=== PATIENT | male | born 2000 | race Caucasian/White ===

== ENCOUNTER 2022-04-16 07:54 | Day surgery (SDC) | payer OTHER ==
[2022-04-14 12:55] VITALS: BMI 28.8
[2022-04-16] MEDS ORDERED: LIDOCAINE HCL 2% (20ML MULTI-DOSE VIAL) ONE (07:56)
[2022-04-16] MEDS ORDERED: MIDAZOLAM HCL 2 MG/2 ML SINGLE DOSE VIAL ONE (08:50)
[2022-04-16] MEDS ORDERED: DEXAMETHASONE SOD PHOSPHATE 4 MG/1 ML VIAL ONE (09:06)
[2022-04-16] MEDS ORDERED: ONDANSETRON 4 MG/2 ML VIAL ONE (09:06)
[2022-04-16] MEDS ORDERED: KETOROLAC TROMETHAMINE 30 MG/1 ML VIAL ONE (09:06)
[2022-04-16] MEDS ORDERED: PROPOFOL 20 ML ONE (09:11)
[2022-04-16] MEDS ORDERED: BUPIVACAINE HCL/PF 0.25% (2.5MG/ML) 10 ML VIAL ONE (09:21)
[2022-04-16 09:45] VITALS: PULSE 70; RESP 16; TEMP 98.3
[2022-04-16 10:06] VITALS: BP 113/66
== END 2022-04-16 10:24 | disposition home or self-care (01) ==
LOC: FASU 07:54
PROVIDERS: ATTEND Orthopaedic Surgery Hand Surgery
PROC: 0JBJ0ZX Excision of Right Hand Subcutaneous Tissue and Fascia, Open Approach, Diagnostic (ICD-10-PCS; principal; 2022-04-16 09:13)
DX: D21.11 Benign neoplasm of connective and other soft tissue of right upper limb, including shoulder (principal)
CPT/HCPCS: 88305-TC

== ENCOUNTER 2022-06-05 03:25 | Emergency (ER) | payer OTHER ==
[2022-06-05 04:16] VITALS: BP 114/71; PULSE 76; RESP 18; TEMP 97.3; BMI 28.7
== END 2022-06-05 06:40 | disposition left against medical advice (07) ==
LOC: JER 03:25
DX: R11.0 Nausea (principal)
CPT/HCPCS: 99281-25

== ENCOUNTER 2022-06-06 00:21 | Inpatient (IN) | payer OTHER ==
[2022-06-06] MEDS ORDERED: ONDANSETRON 4 MG/2 ML VIAL IVPUSH ONE (02:43)
[2022-06-06] MEDS ORDERED: ACETAMINOPHEN 1000 MG/100 ML BAG IVPB ONE (02:44)
[2022-06-06] MEDS ORDERED: ACETAMINOPHEN INJECTION 100 ML IVPB ONE (02:55)
[2022-06-06] MEDS ORDERED: ONDANSETRON 4 MG/2 ML VIAL ONE (02:55)
[2022-06-06 03:26] LABS: BASO % 0.1 % (0-2.0); EOS % 1.9 % (0-4.5); HEMATOCRIT 42.5 % (35.4-49); HEMOGLOBIN 14.1 GM/dL (11.7-16.9); LYMPH % 29.4 % (8-40); MCH 28.6 pg (25.7-33.7); MCHC 33.1 g/dl (32.0-35.9); MEAN CELL VOLUME 86.5 fl (80-96); MEAN PLT VOLUME 10.1 fl (7.5-11.1); MONO % 9.5 % (3.8-10.2); NEUT % 59.1 % (42.8-82.8); PLATELET COUNT 187 10^3/uL (134-434); RBC 4.91 M/mm3 (4.00-5.60); RDW 13.5 % (11.9-15.9); WHITE BLOOD COUNT 4.7 K/mm3 (4.0-10.0)
[2022-06-06 03:39] LABS: CALCIUM 9.2 mg/dL (8.5-10.1)
[2022-06-06 03:41] LABS: ALBUMIN 4.1 g/dl (3.4-5.0); BLOOD UREA NITROGEN 13.5 mg/dL (7-18)
[2022-06-06 03:44] LABS: BILIRUBIN,TOTAL 2.6 mg/dL (0.2-1); CREATININE 0.6 mg/dL (0.55-1.3)
[2022-06-06 03:45] LABS: TOT PROT 7.5 g/dl (6.4-8.2)
[2022-06-06] MEDS ORDERED: SODIUM CHLORIDE 1,000 ML IV STA (08:52)
[2022-06-06 10:02] LABS: INR 1.23 (0.83-1.09); PROTHROMBIN TIME (PATIENT) 14.2 SEC (9.7-13.0)
[2022-06-06 10:05] LABS: ACTIVATED PTT 39.4 SECONDS (25.2-36.5)
[2022-06-06] MEDS ORDERED: LACTATED RINGERS SOLUTION 1,000 ML/1,000 ML INFUS.BAG IV SCH (11:30)
[2022-06-06] MEDS ORDERED: PHYTONADIONE 10 MG/1 ML AMP IVPB ONE (13:00)
[2022-06-06 13:01] LABS: BASO % 0.5 % (0-2.0); HEMATOCRIT 41.6 % (35.4-49); HEMOGLOBIN 13.7 GM/dL (11.7-16.9); LYMPH % 34.4 % (8-40); MCH 28.5 pg (25.7-33.7); MCHC 32.9 g/dl (32.0-35.9); MEAN CELL VOLUME 86.7 fl (80-96); MEAN PLT VOLUME 10.2 fl (7.5-11.1); NEUT % 55.1 % (42.8-82.8); PLATELET COUNT 172 10^3/uL (134-434); RDW 13.4 % (11.9-15.9); WHITE BLOOD COUNT 3.3 K/mm3 (4.0-10.0)
[2022-06-06 13:10] LABS: CALCIUM 8.6 mg/dL (8.5-10.1)
[2022-06-06 13:12] LABS: ALBUMIN 3.7 g/dl (3.4-5.0); BLOOD UREA NITROGEN 9.7 mg/dL (7-18)
[2022-06-06 13:14] LABS: CREATININE 0.6 mg/dL (0.55-1.3)
[2022-06-06 13:17] LABS: BILIRUBIN,TOTAL 1.7 mg/dL (0.2-1); TOT PROT 6.8 g/dl (6.4-8.2)
[2022-06-06] MEDS ORDERED: ONDANSETRON 4 MG/2 ML VIAL IVPUSH PRN (13:32)
[2022-06-06] MEDS ORDERED: PHYTONADIONE 10 MG/1 ML AMP ONE (13:33)
[2022-06-06] MEDS ORDERED: PIPERACILLIN/TAZOB 3.375 GM 3.375 GM/50 ML BAG IVPB ONE (13:33)
[2022-06-06] MEDS: PIPERACILLIN/TAZOB 3.375 GM 3.375 GM in DEXTROSE 5%-WATER - 50 ML IVPB SCH ×2 (14:14→18:24)
[2022-06-06] MEDS: LACTATED RINGERS SOLUTION 1,000 ML/1,000 ML INFUS.BAG IV SCH (16:22)
[2022-06-06 17:57] VITALS: BMI 28.8
[2022-06-07] MEDS: PIPERACILLIN/TAZOB 3.375 GM 3.375 GM in DEXTROSE 5%-WATER - 50 ML IVPB SCH ×2 (01:17→10:59)
[2022-06-07 09:32] LABS: BASO % 0.6 % (0-2.0); EOS % 2.2 % (0-4.5); HEMOGLOBIN 13.4 GM/dL (11.7-16.9); MCH 28.7 pg (25.7-33.7); MCHC 33.4 g/dl (32.0-35.9); MEAN PLT VOLUME 10.4 fl (7.5-11.1); MONO % 9.4 % (3.8-10.2); NEUT % 55.8 % (42.8-82.8); PLATELET COUNT 167 10^3/uL (134-434); RBC 4.65 M/mm3 (4.00-5.60); RDW 13.6 % (11.9-15.9)
[2022-06-07] MEDS: LACTATED RINGERS SOLUTION 1,000 ML/1,000 ML INFUS.BAG IV SCH ×2 (09:36→18:13)
[2022-06-07 10:10] LABS: CALCIUM 9.2 mg/dL (8.5-10.1)
[2022-06-07 10:11] LABS: ALBUMIN 3.6 g/dl (3.4-5.0); BLOOD UREA NITROGEN 8.5 mg/dL (7-18)
[2022-06-07 10:13] LABS: ALBUMIN 3.6 g/dl (3.4-5.0)
[2022-06-07 10:14] LABS: CREATININE 0.6 mg/dL (0.55-1.3)
[2022-06-07 10:15] LABS: BILIRUBIN,TOTAL 1.6 mg/dL (0.2-1); TOT PROT 6.8 g/dl (6.4-8.2)
[2022-06-07 10:17] LABS: BILIRUBIN,DIRECT 0.8 mg/dL (0.0-0.2); BILIRUBIN,TOTAL 1.6 mg/dL (0.2-1)
[2022-06-07 10:18] LABS: TOT PROT 6.8 g/dl (6.4-8.2)
[2022-06-08 09:09] LABS: ALBUMIN 3.7 g/dl (3.4-5.0)
[2022-06-08 09:12] LABS: BILIRUBIN,DIRECT 0.6 mg/dL (0.0-0.2)
[2022-06-08 09:13] LABS: TOT PROT 6.9 g/dl (6.4-8.2)
[2022-06-08 09:22] LABS: BILIRUBIN,TOTAL 1.1 mg/dL (0.2-1)
[2022-06-08] MEDS: LACTATED RINGERS SOLUTION 1,000 ML/1,000 ML INFUS.BAG IV SCH (13:47)
[2022-06-08] MEDS: CEFTRIAXONE 1 GM in DEXTROSE 5%-WATER - 50 ML IVPB SCH (17:42)
[2022-06-09] MEDS: LACTATED RINGERS SOLUTION 1,000 ML/1,000 ML INFUS.BAG IV SCH (02:30)
[2022-06-09] MEDS: CEFTRIAXONE 1 GM in DEXTROSE 5%-WATER - 50 ML IVPB SCH (09:26)
[2022-06-09] MEDS: PIPERACILLIN/TAZOB 3.375 GM 3.375 GM in DEXTROSE 5%-WATER - 50 ML IVPB SCH ×2 (10:00→10:01)
[2022-06-09 10:11] LABS: BILIRUBIN,TOTAL 0.9 mg/dL (0.2-1)
[2022-06-09 10:16] LABS: ALBUMIN 3.6 g/dl (3.4-5.0)
[2022-06-09 10:19] LABS: BILIRUBIN,DIRECT 0.5 mg/dL (0.0-0.2); TOT PROT 6.6 g/dl (6.4-8.2)
[2022-06-09] MEDS ORDERED: BUPIVACAINE HCL/PF 0.25% (2.5MG/ML) 10 ML VIAL ONE (12:15)
[2022-06-09] MEDS ORDERED: FENTANYL CITRATE/PF 50 MCG/ML VIAL ONE ×2 (13:09→15:09)
[2022-06-09] MEDS ORDERED: MIDAZOLAM HCL 2 MG/2 ML SINGLE DOSE VIAL ONE (13:09)
[2022-06-09] MEDS ORDERED: PROPOFOL 20 ML ONE (13:26)
[2022-06-09] MEDS ORDERED: ONDANSETRON 4 MG/2 ML VIAL ONE (13:29)
[2022-06-09] MEDS ORDERED: DEXAMETHASONE SOD PHOSPHATE 4 MG/1 ML VIAL ONE (13:29)
[2022-06-09] MEDS ORDERED: ROCURONIUM BROMIDE 50 MG/5 ML SYRINGE ONE (13:32)
[2022-06-09] MEDS ORDERED: GLYCOPYRROLATE 0.2 MG/1 ML VIAL ONE ×2 (14:17)
[2022-06-09] MEDS ORDERED: NEOSTIGMINE METHYLSULFATE 0.5 MG/ML - 10 ML MDV ONE (14:17)
[2022-06-09] MEDS ORDERED: BUPIVACAINE HCL/PF 0.5% (5MG/ML) 10 ML VIAL NR ONE ×2 (14:17)
[2022-06-09] MEDS ORDERED: ONDANSETRON 4 MG/2 ML VIAL IVPUSH PRN ×3 (15:01→15:25)
[2022-06-09] MEDS ORDERED: oxyCODONE HCL 5 MG TABLET PO PRN (15:01)
[2022-06-09] MEDS ORDERED: ACETAMINOPHEN 1000 MG/100 ML BAG IVPB ONE ×3 (15:02→15:25)
[2022-06-09] MEDS ORDERED: LACTATED RINGERS SOLUTION 1,000 ML IV SCH (15:15)
[2022-06-09] MEDS: LACTATED RINGERS SOLUTION 1,000 ML IV SCH (16:40)
[2022-06-09] MEDS ORDERED: ACETAMINOPHEN 1000 MG/100 ML BAG IVPB PRN (21:15)
[2022-06-09] MEDS ORDERED: KETOROLAC TROMETHAMINE 15 MG/ML VIAL IVPUSH PRN (22:00)
[2022-06-10] MEDS: oxyCODONE HCL 5 MG TABLET PO PRN ×2 (04:02→12:39)
[2022-06-10] MEDS: LACTATED RINGERS SOLUTION 1,000 ML IV SCH (08:25)
[2022-06-10 09:53] LABS: BASO % 0.2 % (0-2.0); EOS % 0.2 % (0-4.5); HEMATOCRIT 37.8 % (35.4-49); HEMOGLOBIN 12.4 GM/dL (11.7-16.9); LYMPH % 24.8 % (8-40); MCH 28.9 pg (25.7-33.7); MCHC 32.8 g/dl (32.0-35.9); MEAN PLT VOLUME 10.6 fl (7.5-11.1); MONO % 7.7 % (3.8-10.2); NEUT % 67.1 % (42.8-82.8); PLATELET COUNT 169 10^3/uL (134-434); RBC 4.29 M/mm3 (4.00-5.60); RDW 13.7 % (11.9-15.9); WHITE BLOOD COUNT 5.9 K/mm3 (4.0-10.0)
[2022-06-10] MEDS ORDERED: IBUPROFEN 400 MG TABLET (FP) PO PRN (10:08)
[2022-06-10 10:41] LABS: ALBUMIN 3.5 g/dl (3.4-5.0); CALCIUM 8.8 mg/dL (8.5-10.1)
[2022-06-10 10:42] LABS: BLOOD UREA NITROGEN 7.2 mg/dL (7-18)
[2022-06-10 10:45] LABS: CREATININE 0.7 mg/dL (0.55-1.3)
[2022-06-10 10:46] LABS: BILIRUBIN,TOTAL 1.1 mg/dL (0.2-1); TOT PROT 6.6 g/dl (6.4-8.2)
[2022-06-11 09:08] LABS: HEMATOCRIT 40.6 % (35.4-49); HEMOGLOBIN 13.2 GM/dL (11.7-16.9); MCH 28.6 pg (25.7-33.7); MCHC 32.5 g/dl (32.0-35.9); MEAN CELL VOLUME 87.9 fl (80-96); MEAN PLT VOLUME 10.5 fl (7.5-11.1); PLATELET COUNT 158 10^3/uL (134-434); RBC 4.61 M/mm3 (4.00-5.60); RDW 13.7 % (11.9-15.9); WHITE BLOOD COUNT 6.1 K/mm3 (4.0-10.0)
[2022-06-11 09:16] LABS: CALCIUM 9.2 mg/dL (8.5-10.1)
[2022-06-11 09:17] LABS: ALBUMIN 3.8 g/dl (3.4-5.0); BLOOD UREA NITROGEN 9.7 mg/dL (7-18)
[2022-06-11 09:19] LABS: CREATININE 0.7 mg/dL (0.55-1.3)
[2022-06-11 09:21] LABS: BILIRUBIN,TOTAL 0.8 mg/dL (0.2-1); TOT PROT 7.1 g/dl (6.4-8.2)
[2022-06-11 09:23] VITALS: TEMP 98.4
[2022-06-11 14:47] VITALS: BP 101/61; PULSE 78; RESP 20
== END 2022-06-11 16:50 | disposition home or self-care (01) | DRG 263 ==
LOC: JER 00:21 → JERBED 12:21 → OBSVTOIN 13:30 → J7W 14:47
PROVIDERS: ADMIT Internal Medicine; ATTEND Internal Medicine
PROC: 0FT44ZZ Resection of Gallbladder, Percutaneous Endoscopic Approach (ICD-10-PCS; principal; 2022-06-09 12:30)
DX: K80.00 Calculus of gallbladder with acute cholecystitis without obstruction (principal); K76.0 Fatty (change of) liver, not elsewhere classified; R79.89 Other specified abnormal findings of blood chemistry; U09.9 Post COVID-19 condition, unspecified
CPT/HCPCS: 36415; 71046-TC-FY; 74181-TC; 76705-TC; 80053; 80076; 82150; 82550; 82553; 82728; 82977; 83516; 83690; 83735; 84100; 85025; 85027; 85610; 85730; 86038; 86705; 86708; 86803; 86850; 86900; 86901; 87040; 87340; 88304-TC; 93005; 93010; 94760; 99285-25; C9803-CS; G0378; U0003; U0005